=== PATIENT | female | born 1945 | race American Indian/Alaskan Native ===

== ENCOUNTER 2021-06-12 10:05 | Emergency (ER) | payer MEDICARE ==
[2021-06-12] MEDS ORDERED: ONDANSETRON 4 MG/2 ML INJ IV ONE (10:54)
[2021-06-12] MEDS ORDERED: SODIUM CHLORIDE 0.9% 1000 ML 1,000 ML IV ONE (10:54)
[2021-06-12] MEDS ORDERED: MORPHINE 4 MG/1 ML INJ IV ONE (10:54)
--- NOTE | 2021-06-12 10:58 | Emergency Department Report ---
ED General Adult HPI - General Chief complaint: Extremity Problem,Nontraumatic Stated complaint: RIGHT SIDE MUSCLE SPASM Time Seen by Provider: 06/12/21 10:50 Source: EMS Mode of arrival: Stretcher Limitations: Language Barrier, Physical Limitation - History of Present Illness Initial comments: Patient is 76-year-old female with history of right-sided stroke with residual weakness. Patient brought to the emergency room via EMS from home for evaluatio n of right lower extremity spasm. Patient stated that it started this morning. Patient stated that she has several similar episodes before. Patient denied any recent injury. No fever or chills. No chest pain or shortness of breath. - Related Data Allergies Allergy/AdvReac Type Severity Reaction Status Date / Time No Known Allergies Allergy Unverified 06/12/21 10:17 ED Review of Systems ROS: Stated complaint: RIGHT SIDE MUSCLE SPASM Other details as noted in HPI Comment: All other systems reviewed and negative Constitutional: denies: chills, fever Respiratory: denies: cough, shortness of breath, SOB with exertion Cardiovascular: denies: chest pain Gastrointestinal: denies: abdominal pain, nausea, vomiting Neurological: denies: headache, weakness, numbness, paresthesias, confusion Psychiatric: denies: suicidal thoughts ED Physical Exam - General Limitations: Language Barrier, Physical Limitation General appearance: alert, in no apparent distress - Head Head exam: Present: atraumatic, normocephalic, normal inspection - Eye Eye exam: Present: normal appearance - Neck Neck exam: Present: normal inspection, full ROM. Absent: tenderness, meningismus - Respiratory Respiratory exam: Present: normal lung sounds bilaterally - Cardiovascular Cardiovascular Exam: Present: regular rate, normal rhythm, normal heart sounds - GI/Abdominal GI/Abdominal exam: Present: soft, normal bowel sounds. Absent: distended, tenderness, guarding, rebound, rigid, organomegaly, mass, bruit, pulsatile mass, hernia - Extremities Exam Extremities exam: Present: normal inspection, full ROM, normal capillary refill. Absent: tenderness, pedal edema, joint swelling, calf tenderness - Back Exam Back exam: Present: normal inspection, full ROM. Absent: CVA tenderness (R), CVA tenderness (L) - Neurological Exam Neurological exam: Present: alert, oriented X3, CN II-XII intact, motor sensory deficit (chronic) - Psychiatric Psychiatric exam: Present: normal mood - Skin Skin exam: Present: warm, intact, normal color ED Course Vital Signs 06/12/21 06/12/21 06/12/21 10:24 10:32 10:45 Temperature Pulse Rate Respiratory Rate Blood Pressure 81/51 91/55 Blood Pressure [Left] O2 Sat by Pulse 100 100 99 Oximetry 06/12/21 06/12/21 06/12/21 11:01 11:10 11:15 Temperature Pulse Rate Respiratory 17 18 Rate Blood Pressure 91/55 91/55 Blood Pressure [Left] O2 Sat by Pulse 100 98 100 Oximetry 06/12/21 06/12/21 06/12/21 11:31 11:42 13:07 Temperature 98.0 F 97.7 F Pulse Rate 79 85 Respiratory 18 18 Rate Blood Pressure 91/55 Blood Pressure 140/78 112/67 [Left] O2 Sat by Pulse 99 100 97 Oximetry ED Medical Decision Making - Lab Data Result diagrams: 06/12/21 11:24 06/12/21 11:24 - Medical Decision Making Patient is 76-year-old female with history of right-sided stroke with residual weakness. Patient brought to the emergency room via EMS from home for e valuation of right lower extremity spasm. Patient stated that it started this morning. Patient stated that she has several similar episodes before. Patient denied any recent injury. No fever or chills. No chest pain or shortness of breath. Patient remained stable in the ER with stable vital sign. Patient received morphine and Zofran and stated that her symptoms completely resolved. Labs re viewed and is unremarkable. I started patient on baclofen and advised her to follow-up with her primary care physician in the next 2 to 3 days and to return to the ER if she develop any new symptoms. Critical care attestation.: If time is entered above; I have spent that time in minutes in the direct care of this critically ill patient, excluding procedure time. ED Disposition Clinical Impression: Muscle spasm of right lower extremity Disposition: HOME / SELF CARE / HOMELESS Is pt being admited?: No Condition: Stable Instructions: Muscle Cramps and Spasms, [id number] Referrals: PRIMARY CARE, [Primary Care Provider] - 3-5 Days
[2021-06-12 11:45] LABS: Basophils % (Auto) 0.9 % (0.0-1.8); Eosinophils % (Auto) 0.7 % (0.0-4.3); Hematocrit 42.2 % (30.3-42.9); Hemoglobin 14.1 gm/dl (10.1-14.3); Lymphocytes # (Auto) 1.5 K/mm3 (1.2-5.4); Lymphocytes % (Auto) 34.1 % (13.4-35.0); Mean Corpuscular HGB Conc 33 % (30-34); Mean Corpuscular Volume 91 fl (79-97); Monocytes # (Auto) 0.6 K/mm3 (0.0-0.8); Monocytes % (Auto) 12.7 % (0.0-7.3); Platelet Count 259 K/mm3 (140-440); Red Blood Count 4.66 M/mm3 (3.65-5.03); Red Cell Distribution Width 14.2 % (13.2-15.2)
[2021-06-12 12:02] LABS: Blood Urea Nitrogen 23 mg/dL (7-17); Calcium 10.1 mg/dL (8.4-10.2); Hemolysis Index 16
[2021-06-12 12:03] LABS: BUN/Creatinine Ratio 33
[2021-06-12 14:21] VITALS: BP 109/40
== END 2021-06-12 14:48 | disposition home or self-care (01) ==
LOC: ED 10:05
DX: M62.831 Muscle spasm of calf (principal)
CPT/HCPCS: 36415; 80048; 83735; 85025; 96361; 96374; 96375; 99284; J2270; J2405; J7030; Q0162